=== PATIENT | female | born 1995 | race Hispanic/Latino ===

== ENCOUNTER 2018-08-08 07:30 | Inpatient (IN) | payer OTHER, SELFPAY ==
[2018-08-08 17:16] LABS: RPR Titer ND
[2018-08-08 17:21] LABS: Absolute Lymphocytes (CBC) 1.6 K/uL (0.7-4.9); Absolute Monocytes 0.6 K/uL (0.1-1.3); Absolute Neutrophil 5.6 K/uL (1.8-8.0); Basophils % 0.3 % (0-1.3); Eosinophils % 0.5 % (0-4.4); Hematocrit 34.7 % (36.0-45.0); Lymphocytes % 20.3 % (15.3-44.8); MPV 10.2 fL (7.6-11.3); Monocytes % 7.8 % (3.3-12.3)
[2018-08-08 17:47] LABS: Urine Appearance CLEAR; Urine Bilirubin NEGATIVE (NEG); Urine Blood NEGATIVE (NEG); Urine Color YELLOW; Urine Glucose NEGATIVE (NEG); Urine Protein TRACE (NEG); Urine Specific Gravity 1.025 (1.005-1.030)
[2018-08-08 18:07] LABS: Urine Bacteria 20-50 /HPF (<20); Urine Culture Reflex Order REFLEXED; Urine RBC <5 /HPF (NONE SEEN)
[2018-08-08 23:10] LABS: RPR (Rapid Plasma Reagin) NON-REACT (NON-REACT)
[2018-08-09] MEDS ORDERED: Ringers Lactate 1,000 ML IV PRN (04:53)
[2018-08-09] MEDS ORDERED: NA CIT/CITRIC AC 30 ML ORAL UDC PO ONE (04:58)
[2018-08-09] MEDS ORDERED: FAMOTIDINE 20 MG/2 ML VIAL IV ONE (04:58)
[2018-08-09] MEDS ORDERED: Ringers Lactate 1,000 ML IV SCH (05:00)
[2018-08-09] MEDS ORDERED: METOCLOPRAMIDE 10 MG/2mL INJ IV SCH (05:00)
[2018-08-09] MEDS ORDERED: CEFAZOLIN 2 GM in NA CHLORIDE 0.9% 20 ML IVPB SCH (05:00)
[2018-08-09 05:47] VITALS: BMI 29.6
[2018-08-09] MEDS ORDERED: CEFAZOLIN/SWI 2gm 2 GM/20 ML SYR ONE (06:08)
[2018-08-09] MEDS ORDERED: OXYTOCIN 10 UNIT/ML ML IV ONE ×3 (07:25→11:18)
[2018-08-09] MEDS ORDERED: MORPHINE SULFATE/PF 1 MG/ML (10 ML AMP) ONE (07:25)
[2018-08-09] MEDS ORDERED: EPHEDRINE SULF 50 MG/ML VIAL ONE ×2 (07:25→07:56)
[2018-08-09] MEDS ORDERED: BUPIVACAINE 0.75% (PF) 2 ML SP ONE (07:53)
--- NOTE | 2018-08-09 08:14 | PREOPHP ---
Date of Admission: 08/09/2018 History Of Present Illness: A 22-year-old, 2, para 1, for repeat section. She will be 39 weeks and 1 day tomorrow. History of herpes with the first , herpes-free interval, a nd she is on acyclovir, but her cervix is unfavorable. Baby is fairly large, and she wishes to proce ed. Infection, blood loss, anesthetic complications; injury to bladder, bowel, or ureter; postoperat nico complications, clots in legs, and pneumonia discussed. The patient knows fully well, this does n ot constitute all the possible problems that could occur during or following surgery. Does not think she has any allergies. vitamins. Physical Examination: HEENT: Clear. Pupils equal, round, and reactive to light and accommodation. Conjunctivae well perf used. No oral, lingual, or buccal lesions. Chest and Lungs: Clear. Heart: Without murmurs, thrills, heaves, or rubs. Breasts: Without masses on previous visits. Not examined today. Extremities: Clear. Bonsai Culturist: The baby is at least 7.5 to 8.5 pounds, vertex. Cervix is posterior and 1 cm. Plan: We will proceed with repeat section tomorrow. PRAKASH/FELIPE Voice ID: [id number]
[2018-08-09] MEDS ORDERED: ONDANSETRON 4 MG/2 ML VIAL ONE (11:17)
[2018-08-09] MEDS ORDERED: D5LR 1,000 ML IV ONE (11:18)
[2018-08-09] MEDS ORDERED: ONDANSETRON 4 MG (ODT) TAB PO PRN (11:27)
[2018-08-09] MEDS ORDERED: ONDANSETRON 4 MG/2 ML VIAL IV PRN (11:27)
[2018-08-09] MEDS ORDERED: DOCUSATE NA/SENNA CONC 1 TAB PO PRN (11:27)
[2018-08-09] MEDS ORDERED: ACETAMINOPHEN 500 MG TAB PO PRN (11:27)
[2018-08-09] MEDS ORDERED: Oxycodone HCl/Acetaminophen 1 TAB TAB PO PRN (11:27)
[2018-08-09] MEDS ORDERED: KETOROLAC 30 MG/ML INJ IV PRN (11:35)
[2018-08-09] MEDS ORDERED: OXYTOCIN/LR 20 UNIT/1,000 ML BAG IV SCH (12:00)
[2018-08-09] MEDS ORDERED: D5LR 1,000 ML IV SCH (12:00)
[2018-08-09] MEDS ORDERED: PROMETHAZINE 25 MG/ML VIAL ONE (12:18)
--- NOTE | 2018-08-09 13:17 | OP ---
Surgeon: Jason Ortiz MD Anesthesiologist: Dr. Dobson. Indications: A 23-year-old female, 2, para 1, previous , for repeat sectio n, 39 weeks 1 day. Full preoperative counseling concerning procedure and possible complications, inc luding infection, blood loss, anesthetic complications, injury to bladder, bowel, ureter, postoperati ve complications, clots in legs, and pneumonia. The patient knows fully well this does not constitut e all the possible problems that could occur during or following surgery. Anesthesia: Spinal block. Merchandise Planning Manager Surgeon: Dr. Hanley. Procedure In Detail: After prepping and draping, timeout was performed. A Pfannenstiel incision was created. The incision was carried to the fascia. The fascia incised and incision carried transvers stefan bilaterally. Anterior fascial plane was developed with both blunt and sharp dissection. The und erlying rectus muscle was . Peritoneum entered bluntly. Low transverse uterine incision cr eated. A 6-pound 13-ounce female was delivered without difficulties. Apgars 7 and 9. Cord blood sp ecimen was obtained. Placenta was removed manually and exteriorized. Cervical os dilated with ring clamp. Uterus closed with 1 chromic followed by 3 [id number] stitches in the left angle for com plete hemostasis. Estimated blood loss during procedure 750 cc. Gutters clear of clot and blood. U terus was replaced in the peritoneal cavity. No further bleeding seen on the suture line. Rectus mu scles reapproximated with 0 Vicryl 3 interrupted sutures, 0 Vicryl used to close the fascia running f rom either angle to the midline. Subcutaneous tissue closed with 2-0 plain. Absorbable emil plac ed and then metal emil. The patient had been given 2 g of Ancef preop, tolerated all procedures w ell. She was transferred back to her room in good condition. Final Diagnoses: Term intrauterine , 39 weeks 1 day, repeat section. Spinal block anesthesia. PRAKASH/FELIPE Voice ID: [id number] Report ID: [id number]
[2018-08-09] MEDS ORDERED: PROMETHAZINE 25 MG/ML VIAL IM PRN (13:42)
[2018-08-09] MEDS ORDERED: CEFAZOLIN/SWI 1gm 1 GM/10 ML SYR IV ONE (16:00)
[2018-08-10] MEDS: Oxycodone HCl/Acetaminophen 1 TAB TAB PO PRN ×2 (07:59→21:25)
[2018-08-10] MEDS ORDERED: KETOROLAC 30 MG/ML INJ IM ONE (14:42)
[2018-08-10] MEDS ORDERED: IBUPROFEN 400 MG TAB PO PRN (14:43)
[2018-08-10] MEDS ORDERED: IBUPROFEN 200 MG TAB PO PRN (15:41)
[2018-08-10] MEDS ORDERED: IBUPROFEN 200 MG TAB PO ONE (15:51)
[2018-08-11 07:12] VITALS: BP 115/59; TEMP 97.7
--- NOTE | 2018-08-12 03:47 | DS ---
Date of Discharge: 08/11/2018 Hospital Course: A 23-year-old 2, para 1, for repeat section, 39 weeks and 1 day, w as delivered of a 6 pound 13 ounce female. Apgars 7 and 9. Spinal block anesthesia. 750 cc blood l oss. Rh positive. Immune to Rubella. Negative beta strep screen. Postoperatively afebrile, ambula ting and voiding. H and H with minimal change. To be dismissed to return to my office this coming w [place] for staple removal. To report any temperature elevation of 100 degrees or greater, severe pain, heavy bleeding, or any other type of abnormalities. Dismissed with tramadol for analgesia. She has had her Tdap immunization. She has had no post spinal block problems. Final Diagnosis: Repeat section at 39 weeks 1 day, spinal block anesthesia. PRAKASH/FELIPE Voice ID: [id number] Report ID: [id number]
[2018-08-12 20:11] LABS: HBsAG Nonreactive (Nonreactive)
--- NOTE | 2018-08-13 08:12 | PN ---
A 23-year-old female, who underwent repeat section. H and H with minimal change. Lochia is normal. Vital signs are all stable. We will discontinue her [place] and IV. The patient has already ambulated twice during the night. No complaints or problems. If she continues to do well, we will send her home tomorrow. She has already had her Tdap immunization. Doing well. PRAKASH/FELIPE Voice ID: [id number] Report ID: [id number]
== END 2018-08-11 07:45 | disposition home or self-care (01) | DRG 787 ==
LOC: 2ND-WC 08-09 04:45
PROVIDERS: ADMIT Specialist; ATTEND Specialist
PROC: 10D00Z1 Extraction of Products of Conception, Low, Open Approach (ICD-10-PCS; principal; 2018-08-09 07:30)
DX: O34.211 Maternal care for low transverse scar from previous cesarean delivery (principal); O98.32 Other infections with a predominantly sexual mode of transmission complicating childbirth; Z3A.39 39 weeks gestation of pregnancy; Z37.0 Single live birth; A60.00 Herpesviral infection of urogenital system, unspecified
CPT/HCPCS: 36415; 81001; 85014; 85025; 86592; 86850; 86900; 86901; 87086; 87088; 87340; 88307; J0690; J2405; J2550; J2590; J2765